=== PATIENT | female | born 1990 | race African-American/Black ===

== ENCOUNTER 2017-04-03 15:55 | Observation (INO) ==
--- NOTE | 2017-04-03 16:04 | OB/GYN Progress Note ---
Date of Encounter: 04/03/17 Time of Encounter: 16:02 - Assessment and Plan (1) Vaginal bleeding during , antepartum Current Visit: Yes Status: Acute Speculum exam shows no bleeding noted and vaginal vault, thick white vaginal discharge noted. External labia with no bleeding, rectal check reveals no hemorrhoids Vaginosis panel, UA with reflex to culture and sensitivity sent heart tones appropriate for gestational age Dr. Rogers updated if all labs negative will discharge to home Qualifiers: Trimester: second trimester Qualified Code(s): O46.92 - Antepartum hemorrhage, unspecified, second trimester (2) 24 weeks gestation of Current Visit: Yes Status: Acute Subjective - Subjective Interval history: 27-year-old 24+2 gestation presents to triage today with pink spotting when wiping after going to the bathroom 2. Patient reports good movement and denies leaking of fluid, contractions, no sexual intercourse and last 2 months, patient has never had this happen before. Low-lying placenta seen on last ultrasound patient came to triage for evaluation. Patient denies any discomfort or burning with urination, and no history of hemorrhoids. Antepartum ROS: new complaints, vaginal bleeding, no loss of fluid, no movement normal, no contractions Objective - Exam FHR: auscultation normal FHR comments: Appropriate for gestational age Auscultation: bilateral: normal Abdomen: Present: normal appearance, soft, gravid Uterus: Present: normal Cervical dilation: Closed/thick/high
[2017-04-03 16:12] LABS: Bilirubin,Urine Negative (Negative); Blood,Urine Negative (Negative); Clarity,Urine Cloudy (Clear); Color,Urine Yellow (Yellow); Glucose,Urine (UA) Normal (Normal); Ketones,Urine Negative (Negative); Leukocyte Esterase,Urine Small (Negative); Nitrite,Urine Negative (Negative); Protein,Urine Negative (Neg-Trace); Urobilinogen,Urine Normal (Normal)
[2017-04-03 16:16] LABS: Bacteria,Urine Moderate per hpf (None-Few); Hyaline Casts,Urine None Seen per lpf (None-Few); Squamous Epithelial Cell,Urine Many per lpf (None-Few); WBC,Urine 15-30 per hpf (0-3)
[2017-04-03 17:10] LABS: Candida DNA Not Detected (Not Detect); Gardnerella DNA Not Detected (Not Detect); Trichomonas DNA Not Detected (Not Detect)
[2017-04-03] MEDS ORDERED: Ringers Solution, Lactated 1,000 ML IVC ONE (17:30)
== END 2017-04-03 18:51 | disposition home or self-care (01) ==
LOC: 1NENULAB
PROVIDERS: ADMIT Obstetrics & Gynecology; ATTEND Obstetrics & Gynecology

== ENCOUNTER → 2017-04-19 11:05 | Observation (INO) ==
--- NOTE | 2017-05-01 11:23 | OB/GYN Progress Note ---
Date of Encounter: 04/19/17 Time of Encounter: 10:45 - Assessment and Plan (1) 26 weeks gestation of Status: Acute (2) Vaginal discharge during in second trimester Status: Acute Pt prevoiusly evaluated for this problem in office 2 days ago and has follow-up in office with the same provider tomorrow. She was evaluated by property staff accountant today and ruled out for PROM. Discharge home to follow-up tomorrow as scheduled. (3) Vaginal pain Status: Acute Subjective - Subjective Principal diagnosis: vaginal pain Interval history: Pt presenting to L&D triage with c/o vaginal discharge, labial swelling and discomfort. She denies s/sx PTL. She was seen on Thursday and has a follow-up appointment in the office tomorrow for the discharge and pain. She was evaluated by property staff accountant. Antepartum ROS: movement normal, no loss of fluid, no vaginal bleeding, no contractions Objective - Exam FHR: category 1 FHR comments: NST reactive per RN
== END | disposition home or self-care (01) ==
LOC: 1NENULAB
PROVIDERS: ADMIT Registered Nurse; ATTEND Registered Nurse

== ENCOUNTER → 2017-06-11 23:55 | Observation (INO) ==
[2017-06-11 22:44] LABS: Bilirubin,Urine Negative (Negative); Blood,Urine Negative (Negative); Clarity,Urine Cloudy (Clear); Color,Urine Dark Yellow (Yellow); Glucose,Urine (UA) Normal (Normal); Ketones,Urine 15 mg/dL (Negative); Leukocyte Esterase,Urine Small (Negative); Nitrite,Urine Negative (Negative); PH,Urine 6.5 pH Units (5.0-8.0); Protein,Urine 30 mg/dL (Neg-Trace); Specific Gravity,Urine > 1.030 (1.010-1.025); Urobilinogen,Urine Normal (Normal)
[2017-06-11 22:47] LABS: Squamous Epithelial Cell,Urine Many per lpf (None-Few)
[2017-06-11 22:56] LABS: Mucus,Urine Moderate (Few); RBC,Urine 0-3 per hpf (0-3)
[2017-06-11 22:57] LABS: Bacteria,Urine Few per hpf (None-Few); Calcium Oxalate Crystals,Urine Present
--- NOTE | 2017-06-11 23:26 | OB/GYN Progress Note ---
Date of Encounter: 06/11/17 Time of Encounter: 23:44 - Assessment and Plan (1) 34 weeks gestation of Current Visit: Yes Status: Acute (2) Vaginal bleeding during , antepartum Current Visit: No Status: Acute Speculum exam shows thick white vaginal discharge, no signs of bleeding. cervical exam 1/long/posterior vaginosis panel sent. will discharge to home, if vaginosis panel positive will call patient. Pt discharged with instructions on when to call provider or return to triage. Pt verbalizes understanding. Qualifiers: Trimester: third trimester Qualified Code(s): O46.93 - Antepartum hemorrhage, unspecified, third trimester Subjective - Subjective Interval history: 34+1 presents to triage with complaints of passing a blood clot with urination earlier in the week, and noticed pink on tissue again tonight after wiping. Has only happened those two times. Reports good movement, denies contractions or leaking of fluid, pain or burning with urination. Pt also with complaints of round ligament and sciatic pain. Antepartum ROS: new complaints, vaginal bleeding, movement normal, no loss of fluid, no contractions Objective - Vital Signs Vital Signs: Intake and Output 06/11/17 06/11/17 06/11/17 07:59 15:59 23:59 Other: Weight 75 kg Patient Weight 06/11/17 23:59 Weight 75 kg - Exam FHR: auscultation normal FHR comments: Baseline 135/ moderate/+accels Abdomen: Present: normal appearance, soft, gravid Cervical dilation: 1/long/posterior - Labs Labs: Abnormal lab results Urine Clarity Cloudy (Clear) A 06/11/17 22:40 Ur Specific [place] > 1.030 (1.010-1.025) H 06/11/17 22:40 Urine Protein 30 mg/dL (Neg-Trace) H 06/11/17 22:40 Urine Ketones 15 mg/dL (Negative) H 06/11/17 22:40 Ur Leukocyte Esterase Small (Negative) H 06/11/17 22:40 Urine Microscopic WBC 3-5 per hpf (0-3) H 06/11/17 22:40 Ur Squamous Epith Cells Many per lpf (None-Few) H 06/11/17 22:40 Urine Mucus Moderate (Few) H 06/11/17 22:40 Ur Culture Indicated? YES (NO) A 06/11/17 22:40
[2017-06-12 00:57] LABS: Trichomonas DNA Not Detected (Not Detect)
[2017-06-12 00:58] LABS: Candida DNA Not Detected (Not Detect); Gardnerella DNA Not Detected (Not Detect)
== END | disposition home or self-care (01) ==
LOC: 1NENULAB
PROVIDERS: ADMIT Advanced Practice Midwife; ATTEND Advanced Practice Midwife

== ENCOUNTER 2017-07-22 08:35 | Inpatient (IN) ==
[2017-07-22 04:39] LABS: Amphetamine Screen,Urine Negative ng/mL (Cutoff=1000); Barbiturate Screen,Urine Negative ng/mL (Cutoff=200); Benzodiazepines Screen,Urine Negative ng/mL (Cutoff=200); Cannabinoid Screen,Urine Positive ng/mL (Cutoff = 50); Cocaine Screen,Urine Negative ng/mL (Cutoff= 300); Opiate Screen,Urine Negative ng/mL (Cutoff=300); Phencyclidine Screen,Urine Negative ng/mL (Cutoff=25)
[2017-07-22 04:43] LABS: Basophils % 0.4 %; Eosinophils # 0.3 K/mcL (0.0-0.6); Eosinophils % 3.7 %; Hematocrit 30.5 % (35.3-44.9); Immature Granulocytes % 0.3 % (0-4); Lymphocytes # 2.6 K/mcL (0.6-4.6); Lymphocytes % 34.8 %; Mean Corpuscular HGB Conc 32.8 g/dL (31.6-35.5); Mean Corpuscular Hemoglobin 29.1 pg (28.0-33.3); Mean Corpuscular Volume 88.7 fL (83.0-100.0); Monocytes # 0.4 K/mcL (0.0-1.3); Monocytes % 5.2 %; Neutrophils # 4.1 K/mcL (1.6-8.9); Platelet Count 222 K/mcL (140-400); Red Blood Count 3.44 M/mcL (3.82-4.97); Red Cell Distribution Width 14.2 % (11.5-14.5); Segmented Neutrophils % 55.6 %
--- NOTE | 2017-07-22 05:38 | Anesthesia Evaluation PreOp ---
Date of Encounter: 07/22/17 Time of Encounter: 05:10 - Past History Planned Operation: KRYSTAL Cardiac History: Denies any Significant Hx Pulmonary History: Smoker, Pack/yr (10) TELECOM ENGINEER History: Other (h/o thoracic scoliosis) Other Medical History: Denies Any Significant HX Anesthesia History: No Prior Anesthetic Complications (denies personal h/o NA or GA complications; denies family h/o GA complications), Past Anesthesia (KRYSTAL x 2) : Yes Test: Positive Alcohol Use: none Drug use: marijuana Medications and Allergies Vit/Iron Fumarate/FA [ Tablet] 1 each PO DAILY 04/19/17 [ History] Iron Chews 07/22/17 [History] 3 Allergy/AdvReac Type Severity Reaction Status Date / Time No Known Allergies Allergy Unverified 01/04/17 01:25 - Meds/Allergy Pre-op Review Medications Reviewed: Yes Allergies Reviewed: Yes Beta Blockers on Current Med List: No Anesthesia Results - Labs 07/22/17 04:19 Anesthesia Exam 127/89, HR 97, RR 26 Height: 1.57m Weight: 74kg NPO (# of Hours): solids >8hrs Pain Scale: 10 Pain Scale Used: Numeric (1 - 10), OquendoDiomedes (Faces) - HEENT Pupil (Motor): Pupils equal Mallampati: II Teeth: Normal Oral Opening: Greater than 3 - TELECOM ENGINEER LOC: Oriented TELECOM ENGINEER Motor: Normal RUE, Normal LUE, Normal RLE, Normal LLE, Normal Face TELECOM ENGINEER Sensory: Normal: RUE, LUE, RLE, LLE, Face - Cardiac Rhythm: Regular Murmur: None - Pulmonary Breath Sounds: bilateral Clear Respiratory Effort: Symmetrical Anesthesia Assess/Plan ASA Score: 2 Modified Иван Scale for Level of Consciousness: Anixous, agitated or restless Anesthetic Plan: Regional Autologous Blood: No Monitoring Plan: Standard Monitors Recovery Plan: Other
--- NOTE | 2017-07-22 05:41 | Anesthesia Procedures ---
Date of Encounter: 07/22/17 Time of Encounter: 05:39 Procedures: Anesthesia - Epidural/Spinal Patient ID/Chart reviewed: Yes Patient examined: Yes OB Eval: Gestational age: 40 weeks 0 days OB Eval: : 5 OB Eval: Hx Para: 2 OB Eval: Dilated at (cm): 8 OB Eval: Contractions: Non-stressed pattern Consent Obtained: Yes Supplemental Oxygen: None/Room Air Site Prep: Aseptic Technique, Sterile prep and drape, Povidone-Iodine 1% Patient position: upright Local Anesthetic: Lidocaine 1% Amount of Local Anesthetic used: 3 Touhy Needle Gauge: 18 Touhy Needle Depth (cm): 5 Catheter Depth at Skin (cm): 10 Test Dose (1.5% Lido + Epi): Volume given (mls): 5 Test Dose Result: Negative Loading Dose: 0.25% Marcaine (mls): 5 Loading Dose: Fentanyl (mcg): 100 Loading Dose Administered: Thru Catheter Infusion Med: 0.125% Bupivacaine w/ 2 mcg/ml Fentanyl Infusion Rate (mls/hr): [address]: Tegaderm, Tape Interspace Used: L3-L4 Loss of Resistance (CHRIST): Yes Blood: No CSF: No Paresthesia: No Vitals + FHT's: please see [facility] EPPS's electronic documentation
--- NOTE | 2017-07-22 06:05 | OB/GYN History & Physical ---
Date of Encounter: 07/22/17 Time of Encounter: 06:03 Assessment and Plan (1) 40 weeks gestation of Current visit: Yes Status: Acute Admit to labor and delivery. Monitor FHTs and contractions. Epidural if desired. GBS positive, prophylaxis administration. Anticipate . History of Present Illness Chief complaint: Spontaneous rupture of membranes HPI: Ms. Graves is a 27 year old female, , at 40+0, presents to labor and delivery with spontaneous rupture of membranes. Pt reports good movement of [place], denies blood in discharge, occasional contractions. Labs: GBS positive. VZV immune, Rubella equivocal. Other serologies negative. Blood type O positive. Past Med Surg Social Fam HX - Past Medical History Medical history: asthma, other Psychiatric history: anxiety - Past Surgical History Surgical History: no surgical history - Social History Smoking Status: Current every day smoker Packs per day: 1/2 Smokeless Tobacco Status: No Alcohol use: none Drug use: marijuana - Family History Mother Adopted: No Family Member Ethnicity: Non- Living Status: Still Living Hx Family Cardiac Disorders: No Hx Family Respiratory Disorders: No Hx Family Cancer: No Hx Family GI Disorders: No Hx Family Genitourinary Disorders: No Hx Family Endocrine Disorder: Yes (type 2 diabetes) Hx Family Musculoskeletal Disorders: No Hx Family Neuromuscular Disorders: No Hx Family Neurologic Disorders: No Hx Family HEENT Disorders: No Hx Family Autoimmune Disorders: No Hx Family Reproductive Disorders: No Hx Family Psychosocial Disorders: No Hx Family Medical Disorders: No Obstetrical History - Pregnancies : 5 Medications and Allergies Vit/Iron Fumarate/FA [ Tablet] 1 each PO DAILY 04/19/17 [ History] Iron Chews 07/22/17 [History] 3 Allergy/AdvReac Type Severity Reaction Status Date / Time No Known Allergies Allergy Unverified 01/04/17 01:25 Review of System OB - Constitutional Constitutional ROS IM: no headache(s), no malaise - Cardiovascular Cardiovascular: no chest pain - Respiratory Respiratory: no dyspnea - Gastrointestinal Gastrointestinal: no abdominal pain Exam - Constitutional Constitutional: well developed, well nourished, no acute distress, average body habitus - HEENT HEENT: EOMI, Mucus Membranes Moist - Neck Neck exam: full ROM - Lungs Respiratory exam: CTAB - Cardiovascular Cardiovascular exam: +S1, +S2 - Abdomen Abdomen: Present: gravid - Extremities Extremities exam: warm, radial pulses palpable and symmetrical - Cervix Dilation: 8 Results Result Diagrams: 07/22/17 04:19 Abnormal lab results RBC 3.44 M/mcL (3.82-4.97) L 07/22/17 04:19 Hgb 10.0 g/dL (11.5-15.4) L 07/22/17 04:19 Hct 30.5 % (35.3-44.9) L 07/22/17 04:19 U Marijuana (THC) Screen Positive ng/mL (Cutoff = 50) H 07/22/17 04:19 All other labs normal. - VTE Reasons for not Prescribing Prophylaxis: Treatment not Indicated - Low risk for VTE
--- NOTE | 2017-07-22 07:58 | OB/GYN Procedure Note ---
Delivery - Delivery Date: 07/22/17 Provider: Chuyita Vazquez Intrapartum events: none Delivery induction: none Delivery monitor: external FHT, external uterine Anesthesia: epidural Estimated Blood Loss: 50 - Infant (s) Infant A Delivery Date: 07/22/17 Infant Delivery Time: 07:26 Presentation: vertex Position: OP Route of delivery: Gender: Male Viability: Viable Pounds: 7 Ounces: 5 Weight Gram: 3310 kg at 1 minute: 8 at 5 mins: 9 Shoulder Dystocia: not encountered Specimens collected: cord blood Placenta: spontaneous Cord: 3 umbilical vessels - Repair Episiotomy: none Laceration Description: None - Complications Delivery complications: none Delivery comments: Pt presented in active labor and progressed normally to over intact perineum for viable male weighing 7lbs. 5oz with apgars 8at one minute and 9 at five minutes. After a two minute delay the cord was clamped and cut and the placenta delivered spontaneous and intact. Mother and baby stable in DR following procedure. - Disposition Mom disposition: stable in LDR disposition: stable in LDR
[~2017-07-22 08:35] MED LIST: *HR* FentaNYL (PF) 100 MCG/2 ML VIAL EP ONE; *HR* FentaNYL (PF) 100 MCG/2 ML VIAL ONE; *HR* Oxytocin 10 UNIT/ML VIAL IM ONE; Bupivacaine-MPF 0.25% 10 ML VIAL EP ONE; Bupivacaine-MPF 0.25% 10 ML VIAL ONE; Epidural Premix (fent/bupiv) 110 ML EP ONE; Epidural Premix (fent/bupiv) 110 ML EP SCH; Famotidine 20 MG/2 ML VIAL IVP PRN; Metoclopramide 10 MG/2 ML VIAL IVP PRN; Naloxone 0.4 MG/ML INJ IVP PRN; Ondansetron 4 MG/2 ML VIAL IVP PRN; Oxytocin 20 units/ LR 1000 mL 20 UNIT/1,000 ML BAG IVC ONE; Penicillin G Potassium 2,500,000 UNIT in D5% in Water 100 ML IVPB SCH; Penicillin G Potassium 5,000,000 UNIT in D5% in Water (Mini-Bag+) 100 ML IVPB ONE; Ringers Solution, Lactated 1,000 ML IVC SCH
[2017-07-22] MEDS ORDERED: Acetaminophen 325 MG TABLET PO PRN (10:06)
[2017-07-22] MEDS ORDERED: *HR* Oxytocin 10 UNIT/ML VIAL IM ONE (10:06)
[2017-07-22] MEDS ORDERED: Prenatal Vit/FA 1 EACH TABLET PO SCH (10:06)
[2017-07-22] MEDS ORDERED: Oxytocin 20 units/ LR 1000 mL 20 UNIT/1,000 ML BAG IVC SCH (10:06)
[2017-07-22] MEDS ORDERED: Measles/Mumps/Rubella Vacc 0.5 ML VIAL SQ PRN (10:06)
[2017-07-22] MEDS: Ibuprofen 600 MG TABLET PO PRN (11:02)
[2017-07-23] MEDS: Ibuprofen 600 MG TABLET PO PRN (07:56)
--- NOTE | 2017-07-23 09:03 | Discharge Summary ---
Date of Encounter: 07/23/17 Time of Encounter: 09:00 - Discharge Diagnosis (1) Vaginal delivery Priority: Primary Status: Acute Comments: continue routine care discharge home today follow up with CNM in 4-6 weeks (2) Breast feeding status of mother Priority: Secondary Status: Acute Comments: support prn - Discharge Medications Prescriptions: Ibuprofen [Motrin] 600 mg PO Q6HR PRN #60 tab PRN Reason: Cramping Home Medications: Vit/Iron Fumarate/FA [ Tablet] 1 each PO DAILY 04/19/17 [ History] Ibuprofen [Motrin] 600 mg PO Q6HR PRN #60 tab 07/23/17 [Rx] Vit/FA 1 each PO DAILY tab 07/23/17 [Rx] Allergies/Adverse Reactions: 3 Allergy/AdvReac Type Severity Reaction Status Date / Time No Known Allergies Allergy Unverified 01/04/17 01:25 Data Procedures and tests throughout hospitalization: Laboratory Tests 07/22/17 07/22/17 04:19 04:19 WBC 7.4 RBC 3.44 L Hgb 10.0 L Hct 30.5 L MCV 88.7 MCH 29.1 MCHC 32.8 RDW 14.2 Plt Count 222 MPV 11.0 Immature Gran % 0.3 Seg Neutrophils % 55.6 Lymphocytes % 34.8 Monocytes % 5.2 Eosinophils % 3.7 Basophils % 0.4 Neutrophils # 4.1 Lymphocytes # 2.6 Monocytes # 0.4 Eosinophils # 0.3 Basophils # 0.0 Urine Opiates Screen Negative Ur Barbiturates Screen Negative Ur Phencyclidine Scrn Negative Ur Amphetamines Screen Negative U Benzodiazepines Scrn Negative Urine Cocaine Screen Negative U Marijuana (THC) Screen Positive H Date of admission: 07/22/17 08:35 Primary care physician: PCP NONE Consults: 07/22/17 10:06 Consult to Lithographic Camera Operator [CONS] Routine Comment: Vaginal delivery, consult needed 07/22/17 10:07 Consult to Collections Clerk (W&C) [CONS] Routine Reason For Exam: Reason for SW Consult: assess if she has all she needs for infant, domestic interaction with children. No FOB involved. Discharging clinician: Cleo Sigala Anticipated date of discharge: 07/23/17 - Patient Status Disposition: Home, Self-Care Condition: Good Functional capacity at discharge: independent ambulation - Discharge Instructions Follow Up With: NONE,PCP [Primary Care Provider] - Chuyita Vazquez CNM [Non-Partnered Physician] - - Diet and Activity Activity: increase activity as tolerated Diet: regular diet Hospital Course Reason for admission: active labor Delivery: Episiotomy: none complications: none Discharge diagnosis: IUP at term delivered [place] baby: male (breast feeding) Time Attestation: Total time spent providing and/or coordinating discharge services: Time Spent: Less than 30 minutes Exam - Constitutional Vitals: Temp Pulse Resp BP Pulse Ox 98.3 F 65 16 105/59 99 07/23/17 03:30 07/23/17 03:30 07/23/17 08:08 07/23/17 03:30 07/23/17 03:30 General appearance IM: A&O X 3, pleasant, answers questions appropriately - Respiratory Respiratory exam: Present: CTAB - Cardiovascular Cardiovascular exam IM: Present: RRR, +S1, +S2 - GI/Abdominal GI/Abdominal exam IM: normal bowel sounds - Uterine Tone: Firm Uterus Position: 1 Finger Below Umbilicus, Midline - Extremities Exam Extremities exam IM: Present: full ROM, normal capillary refill, normal inspection - Neurological Exam Neurological exam: alert, oriented X3, reflexes normal
[2017-07-23 10:57] VITALS: BP 130/81
== END 2017-07-23 13:15 | disposition home or self-care (01) | DRG 560 ==
LOC: 1NENULAB → 1NENUOBS 10:05
PROVIDERS: ADMIT Registered Nurse; ATTEND Registered Nurse

== ENCOUNTER 2017-07-28 14:29 | Observation (INO) ==
[2017-07-28] MEDS ORDERED: Acetaminophen/Butalbital/CaffeineTABLET PO STA (14:48)
[2017-07-28] MEDS ORDERED: Caffeine/Sodium Benzoate 500 MG in 0.9 % Sodium Chloride 1,000 ML IV ONE (14:54)
[2017-07-28] MEDS ORDERED: Hydrocortisone Sodium Succ 100 MG/2 ML VIAL IVP ONE (14:55)
--- NOTE | 2017-07-28 15:22 | Emergency Department Note ---
Disposition Clinical Impression: Pre-eclampsia Qualifiers: Trimester: unspecified trimester Qualified Code(s): O14.90 - Unspecified pre- eclampsia, unspecified trimester Disposition: Admitted As Inpatient Condition: Good Forms: ED Satisfaction Letter Time of Disposition: 17:51 Headache HPI - General Chief Complaint: ED Headache Stated Complaint: Migraine Time Seen by Provider: 07/28/17 14:45 Limitations: no limitations Nursing Notes Reviewed: Yes Vital Signs Reviewed: Yes - History of Present Illness HPI Narrative: 27 year old female s/p epidural 6 days ago presents to the ED with complaints of headache that changes in severity with standing and sitting. She was seen here earlier in the day and treated with a migraine cocktail and they had consulted anesthesia at that time and they did not recommend a blood patch at that time. Emily states that she also spoke with anesthesia and they did not recommend a blood patch at that time. She states that lights and sound do aggrevate her headache and that she has had nausea and vomitting associated with it but not fever or neuro defeits. She states she was given fiorcet for pain relie although she has only taken and is advised to take 3, but doesnt because she has had no appeteit eand not cannot take it by monuth without food. Pain Scale: 4 - Related Data Home Medications Medication Instructions Recorded Confirmed Vit/Iron Fumarate/FA 1 each PO DAILY 04/19/17 04/19/17 [ Tablet] Previous Rx's Medication Instructions Recorded Ibuprofen [Motrin] 600 mg PO Q6HR PRN #60 tab 07/23/17 Vit/FA 1 each PO DAILY tab 07/23/17 Codeine/Butalbital/ASA/Caffein 1 each PO TID #15 capsule 07/28/17 [Fiorinal with Codeine #3 Cap] Allergies Allergy/AdvReac Type Severity Reaction Status Date / Time No Known Allergies Allergy Unverified 01/04/17 01:25 Constitutional: Denies: fever, chills, weakness, weight change Eyes: Denies: eye pain, eye discharge, vision change ENT ED: Denies: ear pain, throat pain, dental pain, hearing loss, epistaxis, congestion, dysphagia Cardiovascular: Denies: chest pain, palpitations, dyspnea on exertion, edema, syncope Respiratory: Denies: cough, dyspnea, wheezes, hemoptysis, stridor Gastrointestinal: Denies: abdominal pain, nausea, vomiting, diarrhea, constipation, hematemesis, melena, hematochezia Genitourinary: Denies: dysuria, frequency, hematuria, discharge Musculoskeletal: Denies: back pain, neck pain, arthralgia, myalgia Integumentary: Denies: rash, abrasion, lesions Neurological: Reports: headache. Denies: weakness, numbness, paresthesias, confusion, abnormal gait, vertigo Psychiatric: Denies: anxiety, depression, suicidal thoughts, homicidal thoughts , auditory hallucinations, visual hallucinations Endocrine: Denies: fatigue Hematological/Lymphatic: Denies: easy bleeding, easy bruising Allergic/Immunologic: Denies: facial swelling, urticaria Headache PMH - Past Medical History Medical history: Reports: asthma, other Female Surgical History: Reports: no surgical history Psychiatric history: Reports: anxiety - Social History Smoking Status: Current every day smoker Alcohol use: Reports: none Drug use: Reports: marijuana Physical Exam - General Limitations: no limitations General appearance: in no apparent distress - Head Head exam: atraumatic, normocephalic, normal inspection - Eye Eye exam: Present: normal appearance, PERRL, EOMI - Expanded Eye Exam Pupils: Left: reactive - ENT ENT exam: normal exam, normal oropharynx, mucous membranes moist - Expanded ENT Exam External ear exam: Present: normal external inspection Mouth exam: Present: normal external inspection Teeth exam: Present: normal inspection Throat exam: Present: normal inspection - Neck Neck exam: Present: normal inspection, full ROM, trachea midline - Chest Chest inspection: Present: normal inspection, symmetric chest wall rise - Respiratory Respiratory exam: Present: normal lung sounds bilaterally - Cardiovascular Cardiovascular exam: Present: regular rate, normal rhythm, normal heart sounds - Abdominal Exam Abdominal exam: Present: soft, Non-Tender. Absent: tenderness, distention, guarding, rebound, rigidity - Extremities Exam Extremities exam: Present: normal inspection, full ROM. Absent: tenderness, pedal edema - Expanded Upper Extremity Exam Shoulder exam: Present: normal inspection, full ROM Arm exam: Present: normal inspection, full ROM Elbow exam: Present: normal inspection, full ROM Forearm/Wrist exam: Present: normal inspection, full ROM Hand exam: Present: normal inspection, full ROM Vascular exam: Normal: capillary refill, radial pulse - Expanded Lower Extremity Exam Hip/Pelvis exam: Present: normal inspection, full ROM Upper leg exam: Present: normal inspection, full ROM Knee exam: Present: normal inspection, full ROM Lower leg exam: Present: normal inspection, full ROM Ankle exam: Present: normal inspection, full ROM Foot/toe exam: Present: normal inspection, full ROM Neurovascular/Tendon exam: Absent: motor deficit, sensory deficit, tendon deficit - Back Exam Back exam: Present: normal inspection, full ROM. Absent: tenderness - Neurological Exam Neurological exam: Present: alert, oriented X3 - Expanded Neurological Exam Patient oriented to: Present: person, place, time Speech: Present: fluid speech Cranial nerves: EOM function (II, III, IV, ): Normal, facial sensation (V): Normal, facial palsy (VII): Normal, gag reflex (IX): Normal, spinal accessory function (XI): Normal, tongue deviation (XII): Normal Cerebellar function: finger to nose: Normal, heel to saeed: Normal Cerebellar function: normal gait, Romberg normal Motor strength - LUE: 4/5 Motor strength - RUE: 4/5 Motor strength - LLE: 4/5 Motor strength - RLE: 4/5 Upper motor neuron exam: jolanta neglect: Absent bilaterally, pronator drift: Absent bilaterally, Babinski sign: Absent bilaterally, sensory extinction: Absent bilaterally Sensory exam upper extremity: light touch: Normal, pin prick: Normal Sensory exam lower extremity: light touch: Normal, pin prick: Normal Coma Scale Eye Opening: Spontaneous Coma Scale Motor Response: Obeys Commands Coma Scale Verbal Response: Oriented Coma Scale Total: 15 - Psychiatric Psychiatric exam: Present: normal affect, normal mood - Skin Skin exam: Present: warm, dry, intact, normal color Course Course Narrative: we will do a MR/CT at this time to rule out abscess vs tear. Blood pressure is normal, low threshold for pre-eclampsia. - Reevaluation(s) Reevaluation #1: MRI and CT are negative. PAtinet blood pressure is elevated now to 188/102 and now my concern is for pre-eclampsia as she is now vomitting at bedside. WE will consult OBGYN for further dispostion. Time: 17:26 - Consultations Consultation #1: discussed case with jori gabriel (shoe stitcher odd) and patient is part of this group. She agrees that this may be pre-eclampsia and would like labetolol started to the treatment and magenesium if the blood pressure does not improve. we will admit to the shoe stitcher odd service. Emily cannot be admitted with her child according to the shoe stitcher odd group. Time: 17:48 Vital Signs Temperature 97.9 F 07/28/17 14:34 Pulse Rate 65 07/28/17 14:34 Respiratory Rate 18 07/28/17 14:34 Blood Pressure 138/89 07/28/17 14:34 O2 Sat by Pulse Oximetry 100 07/28/17 14:34 Temperature 97.9 F 07/28/17 14:34 Pulse Rate 58 07/28/17 17:31 Respiratory Rate 18 07/28/17 17:31 Blood Pressure 188/102 07/28/17 17:31 O2 Sat by Pulse Oximetry 97 07/28/17 17:31 Oxygen Delivery Oxygen Delivery Room Air
[2017-07-28] MEDS ORDERED: *HR* HYDROmorphone (PF) 1 MG/ML SYRINGE IVP ONE (15:27)
[2017-07-28] MEDS ORDERED: *HR* LORazepam 2 MG/ML VIAL IVP ONE (15:27)
[2017-07-28] MEDS: *HR* Labetalol 20 MG/4 ML SYRINGE IVP ONE ×2 (18:10→18:29)
[2017-07-28] MEDS ORDERED: *HR* Labetalol 100 MG/20 ML MDV IVP ONE ×2 (18:15→19:00)
[2017-07-28] MEDS ORDERED: *HR* Labetalol 20 MG/4 ML SYRINGE IVP ONE (18:28)
[2017-07-28] MEDS ORDERED: Ondansetron 4 MG/2 ML VIAL IVP ONE (19:00)
[2017-07-28] MEDS ORDERED: *HR* Promethazine 25 MG/ML VIAL IVP PRN (19:43)
[2017-07-28] MEDS ORDERED: Ondansetron 4 MG/2 ML VIAL IVP PRN (19:43)
[2017-07-28] MEDS ORDERED: Acetaminophen 325 MG TABLET PO PRN (19:48)
--- NOTE | 2017-07-28 19:57 | OB/GYN History & Physical ---
Date of Encounter: 07/28/17 Time of Encounter: 19:51 Assessment and Plan (1) hypertension Current visit: Yes Status: Acute Patient admitted Magnesium sulfate administered Discussed patient with Dr. Hayes. Dr. Hayes recommends a MRV (2) Nausea and vomiting Current visit: Yes Status: Acute treat with IV antiemetic Qualifiers: Vomiting type: unspecified Vomiting Intractability: unspecified Qualified Code(s): R11.2 - Nausea with vomiting, unspecified (3) Breast feeding status of mother Current visit: Yes Status: Acute patient provided breast pump for use (4) Headache Current visit: No Status: Acute pain medication prn Qualifiers: Headache type: unspecified Headache chronicity pattern: acute headache Intractability: not intractable Qualified Code(s): R51 - Headache History of Present Illness Chief complaint: Severe headache and elevated BP 6 days pp HPI: Ms. Graves is a 27 year old female 6 days following a . Patient presents to ER twice in past 24 hours for severe headache with nausea and vomiting. Patient reports headache started yesterday without relief from Tylenol or Motrin. Patient states pain is a throbbing pain that gets worse with sitting or laying down. Patient was assessed by anesthesia for spinal headache. Spinal headache was ruled out. On patient's second admission to ER she had a CT and MRI both were unremarkable. Patient had normal PIH labs however, BP began to elevate in the severe preeclampsia range of 160's/110. Labetalol IV was given and magnesium sulfate 4 gram bolus was started for seizure precautions. Patient admitted to rule out preeclampsia. Past Med Surg Social Fam HX - Past Medical History Source: patient Medical history: asthma, other Psychiatric history: anxiety - Past Surgical History Surgical History: no surgical history - Social History Smoking Status: Current every day smoker Smokeless Tobacco Status: No Alcohol use: none Drug use: marijuana - Family History Mother Adopted: No Family Member Ethnicity: Non- Living Status: Still Living Hx Family Cardiac Disorders: No Hx Family Respiratory Disorders: No Hx Family Cancer: No Hx Family GI Disorders: No Hx Family Endocrine Disorder: Yes (type 2 diabetes) Hx Family Neuromuscular Disorders: No Hx Family Neurologic Disorders: No Hx Family HEENT Disorders: No Hx Family Autoimmune Disorders: No Obstetrical History - Pregnancies : 5 Para: 3 Term: 3 : 0 Ab's: 2 Livin Medications and Allergies Vit/FA 1 each PO DAILY tab 07/23/17 [Rx] Acetaminophen [Tylenol] 500 mg PO Q6HR PRN 07/28/17 [History] Codeine/Butalbital/ASA/Caffein [Fiorinal with Codeine #3 Cap] 1 each PO TID #15 capsule 07/28/17 [Rx] Ferrous Sulfate 325 mg PO DAILY 07/28/17 [History] 3 Allergy/AdvReac Type Severity Reaction Status Date / Time No Known Allergies Allergy Unverified 01/04/17 01:25 Review of System OB - Constitutional Constitutional ROS IM: headache(s) (throbbing), no chills, no fever(s) - Cardiovascular Cardiovascular: no chest pain, no edema, no palpitations, no rapid heart rate, no syncope - Respiratory Respiratory: no cough, no dyspnea - Gastrointestinal Gastrointestinal: nausea, vomiting - Neurological Nerological: headache(s), no dizziness, no loss of vision, no syncope Exam - Vital Signs Vital signs: Initial Vital Signs Temp Pulse Resp BP Pulse Ox 97.9 F 65 18 138/89 100 07/28/17 14:34 07/28/17 14:34 07/28/17 14:34 07/28/17 14:34 07/28/17 14:34 - Constitutional Constitutional: well developed ( ), well nourished, average body habitus - HEENT HEENT: Normocephaly, Mucus Membranes Moist - Neck Neck exam: full ROM, supple - Lungs Respiratory exam: CTAB - Cardiovascular Cardiovascular exam: RRR, +S1, +S2 - Abdomen Abdomen: Present: bowel sounds normal, gravid, non tender - Extremities Extremities exam: full ROM, normal capillary refill, normal inspection Deep Tendon Reflex Grade: 2+ Normal (no clonus) Results All other labs normal. - VTE Reasons for not Prescribing Prophylaxis: Treatment not Indicated - Low risk for VTE
[2017-07-28] MEDS ORDERED: Ringers Solution, Lactated 1,000 ML IVC SCH (20:00)
[2017-07-28] MEDS: Magnesium Sulfate 20 gm/500mL 20 GM/500 ML IV.SOLN IVC SCH (20:38)
[2017-07-28 20:48] LABS: Protein/Creatinine Ratio,Urine 0.93 mg/mg (0-0.20)
[2017-07-28] MEDS ORDERED: Calcium Gluconate 1,000 MG/10 ML VIAL IVPB ONE (20:53)
[2017-07-29] MEDS: *HR* OxyCODONE/APAP 5/325 TABLET PO PRN ×2 (00:16→08:53)
[2017-07-29] MEDS: Magnesium Sulfate 20 gm/500mL 20 GM/500 ML IV.SOLN IVC SCH (08:34)
[2017-07-29 08:40] LABS: Alanine Aminotransferase 18 Units/L (0-55); Aspartate Amino Transferase 18 Units/L (5-34); BUN/Creatinine Ratio 8 (6-26); Blood Urea Nitrogen 6 mg/dL (7-20); Lactate Dehydrogenase 273 Units/L (159-327); Uric Acid 6.8 mg/dL (2.6-6.0); eGFR For African Americans > 60 (> 60); eGFR For Non-African Americans > 60 (> 60)
[2017-07-29 09:25] LABS: Basophils % 0.3 %; Eosinophils # 0.1 K/mcL (0.0-0.6); Eosinophils % 0.6 %; Hematocrit 35.3 % (35.3-44.9); Hemoglobin 11.4 g/dL (11.5-15.4); Immature Granulocytes % 0.6 % (0-4); Lymphocytes # 3.2 K/mcL (0.6-4.6); Lymphocytes % 25.2 %; Mean Corpuscular HGB Conc 32.3 g/dL (31.6-35.5); Mean Corpuscular Hemoglobin 28.6 pg (28.0-33.3); Mean Corpuscular Volume 88.7 fL (83.0-100.0); Mean Platelet Volume 10.6 fL (9.4-12.4); Monocytes # 0.7 K/mcL (0.0-1.3); Monocytes % 5.8 %; Platelet Count 321 K/mcL (140-400); Red Blood Count 3.98 M/mcL (3.82-4.97); Red Cell Distribution Width 13.2 % (11.5-14.5); Segmented Neutrophils % 67.5 %
[2017-07-29 09:31] LABS: Neutrophils # 8.4 K/mcL (1.6-8.9)
--- NOTE | 2017-07-29 18:11 | Discharge Summary ---
Date of Encounter: 07/29/17 Time of Encounter: 18:14 - Discharge Medications Prescriptions: Labetalol [Trandate] 200 mg PO Q8H #90 tablet Home Medications: Vit/FA 1 each PO DAILY tab 07/23/17 [Rx] Acetaminophen [Tylenol] 500 mg PO Q6HR PRN 07/28/17 [History] Codeine/Butalbital/ASA/Caffein [Fiorinal with Codeine #3 Cap] 1 each PO TID #15 capsule 07/28/17 [Rx] Ferrous Sulfate 325 mg PO DAILY 07/28/17 [History] Labetalol [Trandate] 200 mg PO Q8H #90 tablet 07/29/17 [Rx] Allergies/Adverse Reactions: 3 Allergy/AdvReac Type Severity Reaction Status Date / Time No Known Allergies Allergy Unverified 01/04/17 01:25 Data Procedures and tests throughout hospitalization: Laboratory Tests 07/28/17 07/29/17 07/29/17 20:18 08:00 08:00 WBC 12.5 H D RBC 3.98 Hgb 11.4 L Hct 35.3 MCV 88.7 MCH 28.6 MCHC 32.3 RDW 13.2 Plt Count 321 MPV 10.6 Immature Gran % 0.6 Seg Neutrophils % 67.5 Lymphocytes % 25.2 Monocytes % 5.8 Eosinophils % 0.6 Basophils % 0.3 Neutrophils # 8.4 Lymphocytes # 3.2 Monocytes # 0.7 Eosinophils # 0.1 Basophils # 0.0 BUN 6 L Creatinine 0.79 Est GFR ( Amer) > 60 Est GFR (Non-Af Amer) > 60 BUN/Creatinine Ratio 8 Uric Acid 6.8 H AST 18 ALT 18 Lactate Dehydrogenase 273 Urine Creatinine 109 Protein/Creatinin Ratio 0.93 H Urine Total Protein 101 H Labs on day of discharge: Labs from last 24 hours 07/29/17 07/29/17 07/28/17 08:00 08:00 20:18 WBC 12.5 H D RBC 3.98 Hgb 11.4 L Hct 35.3 MCV 88.7 MCH 28.6 MCHC 32.3 RDW 13.2 Plt Count 321 MPV 10.6 Immature Gran % 0.6 Seg Neutrophils % 67.5 Lymphocytes % 25.2 Monocytes % 5.8 Eosinophils % 0.6 Basophils % 0.3 Neutrophils # 8.4 Lymphocytes # 3.2 Monocytes # 0.7 Eosinophils # 0.1 Basophils # 0.0 BUN 6 L Creatinine 0.79 Est GFR ( Amer) > 60 Est GFR (Non-Af Amer) > 60 BUN/Creatinine Ratio 8 Uric Acid 6.8 H AST 18 ALT 18 Lactate Dehydrogenase 273 Urine Creatinine 109 Protein/Creatinin Ratio 0.93 H Urine Total Protein 101 H - Impressions ITS Impressions Head MRA 07/28/17 19:41 IMPRESSION: No evidence of acute dural venous sinus thrombosis. D/ / Narendra Pollack MD / Narendra Pollack MD Interpreting Provider: Narendra Pollack MD Date of admission: 07/28/17 18:19 Primary care physician: Remberto Avalos MD Discharging clinician: Helene Madden - Patient Status Disposition: Home, Self-Care Condition: Good Functional capacity at discharge: independent ambulation Overall status at discharge: patient is back to baseline - Discharge Instructions Instructions: Preeclampsia and Eclampsia (DC), Chronic Hypertension (DC) Follow Up With: Remberto Avalos MD [Primary Care Provider] - Cleo Sigala CNM [Non-Partnered Physician] - - Diet and Activity Activity: resume usual activities as tolerated Diet: regular diet Hospital Course NEWS AGENT Reason for admission: other (headache, pre-eclampsia) Discharge diagnosis: other (headache, pre-eclampsia) Hospital course: Admitted for blood pressure management, magenesium sulfate administration of preeclampsia. Head MRA, CT and Lumbar spine CT negative for acute pathology Will discharge home on TID labetalol with follow up appointment in the office on Thursday. Time Attestation: Total time spent providing and/or coordinating discharge services: Time Spent: Less than 30 minutes Exam - Constitutional Vitals: Temp Pulse Resp BP Pulse Ox 98.0 F 80 18 110/65 98 07/29/17 16:01 07/29/17 17:00 07/29/17 17:00 07/29/17 17:00 07/29/17 16:01 General appearance IM: A&O X 3, pleasant, no acute distress - Respiratory Respiratory exam: Present: CTAB - Cardiovascular Cardiovascular exam IM: Present: RRR - GI/Abdominal GI/Abdominal exam IM: normal bowel sounds, soft - Uterine Tone: Firm Uterus Position: 2 Fingers Below Umbilicus - Extremities Exam Extremities exam IM: Present: normal capillary refill, normal inspection - Neurological Exam Neurological exam: normal gait, oriented X3, reflexes normal - Psychiatric Additional comments: Pt anxious about admission, but reports good mood. - VTE Reasons for not Prescribing Prophylaxis: Treatment not Indicated - Low risk for VTE
[2017-07-29 20:06] VITALS: BP 121/81
== END 2017-07-29 21:30 | disposition home or self-care (01) ==
LOC: EMEROO 14:29 → 1NENUOBS 14:29
PROVIDERS: ADMIT Advanced Practice Midwife; ATTEND Advanced Practice Midwife

== ENCOUNTER 2021-03-20 13:42 | Inpatient (IN) ==
[2021-03-20] MEDS ORDERED: Metoclopramide 10 MG/2 ML VIAL IVP PRN (14:03)
[2021-03-20] MEDS ORDERED: Naloxone 0.4 MG/ML INJ IVP PRN (14:03)
[2021-03-20] MEDS ORDERED: *HR* Nalbuphine 10 MG/ML AMPUL IV PRN (14:03)
[2021-03-20] MEDS ORDERED: Azithromycin 500 MG in 0.9 % Sodium Chloride 250 ML IVPB PRN (14:03)
[2021-03-20] MEDS ORDERED: Famotidine 20 MG/2 ML VIAL IVP PRN (14:03)
[2021-03-20] MEDS ORDERED: Ondansetron 4 MG/2 ML VIAL IVP PRN (14:03)
[2021-03-20] MEDS ORDERED: Ringers Solution, Lactated 1,000 ML IVC SCH (14:15)
[2021-03-20] MEDS ORDERED: Oxytocin 20 units/ LR 1000 mL 20 UNIT/1,000 ML BAG IVC SCH ×2 (14:15→20:15)
[2021-03-20] MEDS ORDERED: Lidocaine -MPF 2% 5 ML VIAL ONE (15:10)
[2021-03-20] MEDS ORDERED: EPHEDrine 50 MG/ML VIAL IVP PRN (15:35)
[2021-03-20 15:44] LABS: Basophils % 0.3 %; Eosinophils # 0.3 K/mcL (0.0-0.6); Eosinophils % 3.8 %; Hematocrit 31.1 % (35.3-44.9); Hemoglobin 10.3 g/dL (11.5-15.4); Immature Granulocytes % 0.4 % (0-4); Lymphocytes # 2.3 K/mcL (0.6-4.6); Lymphocytes % 25.7 %; Mean Corpuscular HGB Conc 33.1 g/dL (31.6-35.5); Mean Corpuscular Hemoglobin 30.4 pg (28.0-33.3); Mean Corpuscular Volume 91.7 fL (83.0-100.0); Mean Platelet Volume 10.7 fL (9.4-12.4); Monocytes # 0.4 K/mcL (0.0-1.3); Monocytes % 4.1 %; Neutrophils # 5.9 K/mcL (1.6-8.9); Red Blood Count 3.39 M/mcL (3.82-4.97); Red Cell Distribution Width 13.8 % (11.5-14.5); Segmented Neutrophils % 65.7 %
[2021-03-20] MEDS ORDERED: Epidural Premix (fent/bupiv) 110 ML EP SCH (15:45)
[2021-03-20 16:18] LABS: Platelet Count 231 K/mcL (140-400)
[2021-03-20 16:54] LABS: Amphetamine Screen,Urine Negative ng/mL (Cutoff=1000); Barbiturate Screen,Urine Negative ng/mL (Cutoff=200); Benzodiazepines Screen,Urine Negative ng/mL (Cutoff=200); Cannabinoid Screen,Urine Positive ng/mL (Cutoff = 50); Cocaine Screen,Urine Negative ng/mL (Cutoff= 300); Opiate Screen,Urine Negative ng/mL (Cutoff=300); Phencyclidine Screen,Urine Negative ng/mL (Cutoff=25)
[2021-03-20 17:09] LABS: Adenovirus Not Detected (Not Detect); Bordetella Pertussis Not Detected (Not Detect); Chlamydophila pneumoniae Not Detected (Not Detect); Coronavirus 229E Not Detected (Not Detect); Coronavirus HKU1 Not Detected (Not Detect); Coronavirus NL63 Not Detected (Not Detect); Coronavirus OC43 Not Detected (Not Detect); Human Metapneumovirus Not Detected (Not Detect); Human Rhinovirus/Enterovirus DETECTED (Not Detect); Influenza A Subtype 2009 H1 Not Detected (Not Detect); Influenza B Not Detected (Not Detect); Mycoplasma pneumoniae Not Detected (Not Detect); Parainfluenza Virus 1 Not Detected (Not Detect); Parainfluenza Virus 2 Not Detected (Not Detect); Parainfluenza Virus 3 Not Detected (Not Detect); Parainfluenza Virus 4 Not Detected (Not Detect); Respiratory Syncytial Virus Not Detected (Not Detect); SARS-CoV-2 Not Detected (Not Detect)
[2021-03-20] MEDS ORDERED: Ropivacaine/PF 0.2% 20 ML VIAL ONE (17:45)
[2021-03-20] MEDS ORDERED: *HR* FentaNYL (PF) 100 MCG/2 ML VIAL ONE (17:45)
[2021-03-20] MEDS ORDERED: Measles/Mumps/Rubella Vacc 0.5 ML VIAL SQ PRN (20:15)
[2021-03-20] MEDS ORDERED: Benzocaine/Menthol 56 GM AEROSOL SPRAY TP PRN (20:15)
[2021-03-20] MEDS ORDERED: Acetaminophen 325 MG TABLET PO PRN (20:15)
[2021-03-20] MEDS ORDERED: Lanolin 7 G OINT...G. TP PRN (20:15)
[2021-03-20] MEDS: Ibuprofen 600 MG TABLET PO PRN (23:35)
[2021-03-21] MEDS: Ibuprofen 600 MG TABLET PO PRN (07:01)
[2021-03-21 07:44] VITALS: BP 122/81
[2021-03-21] MEDS ORDERED: Prenatal Vit/FA 1 EACH TABLET PO SCH (09:00)
== END 2021-03-21 20:30 | disposition home or self-care (01) | DRG 560 ==
LOC: 1NENULAB → 1NENUOBS 21:35
PROVIDERS: ADMIT Registered Nurse; ATTEND Registered Nurse

== ENCOUNTER 2021-03-30 09:51 | Observation (INO) ==
[2021-03-30] MEDS ORDERED: *HR* Labetalol 20 MG/4 ML SYRINGE IVP ONE (10:34)
[2021-03-30 11:20] LABS: Basophils # 0.1 K/mcL (0.0-0.2); Basophils % 0.9 %; Eosinophils # 0.4 K/mcL (0.0-0.6); Eosinophils % 6.7 %; Hemoglobin 10.7 g/dL (11.5-15.4); Immature Granulocytes % 0.4 % (0-4); Lymphocytes # 2.3 K/mcL (0.6-4.6); Lymphocytes % 40.5 %; Mean Corpuscular HGB Conc 32.4 g/dL (31.6-35.5); Mean Corpuscular Hemoglobin 29.4 pg (28.0-33.3); Mean Corpuscular Volume 90.7 fL (83.0-100.0); Mean Platelet Volume 10.3 fL (9.4-12.4); Monocytes # 0.3 K/mcL (0.0-1.3); Monocytes % 4.7 %; Neutrophils # 2.7 K/mcL (1.6-8.9); Platelet Count 305 K/mcL (140-400); Red Blood Count 3.64 M/mcL (3.82-4.97); Red Cell Distribution Width 13.2 % (11.5-14.5); Segmented Neutrophils % 46.8 %; White Blood Count 5.7 K/mcL (4.3-11.1)
[2021-03-30 11:34] LABS: Alanine Aminotransferase 10 Units/L (7-52); Albumin 3.9 g/dL (3.5-5.7); Albumin/Globulin Ratio 1.7 (1.1-2.2); Alkaline Phosphatase 119 Units/L (34-104); Aspartate Amino Transferase 11 Units/L (13-39); BUN/Creatinine Ratio 12 (6-26); Bilirubin,Direct 0.1 mg/dL (0.0-0.2); Bilirubin,Indirect 0.2 mg/dL (0.0-1.0); Bilirubin,Total 0.3 mg/dL (0.3-1.0); Blood Urea Nitrogen 9 mg/dL (6-20); Calcium 8.6 mg/dL (8.6-10.3); Carbon Dioxide 24 mEq/L (23-29); Chloride 110 mEq/L (98-107); Globulin 2.3 g/dL (2.4-3.5); Glucose 84 mg/dL (70-105); Magnesium 1.8 mg/dL (1.6-2.6); Osmolality,Calculated 290 (280-300); Sodium 141 mEq/L (136-145); Total Protein 6.2 g/dL (6.4-8.9); eGFR For African Americans > 60 (> 60); eGFR For Non-African Americans > 60 (> 60)
[2021-03-30 11:40] LABS: Bilirubin,Urine Negative (Negative); Blood,Urine Negative (Negative); Clarity,Urine Clear (Clear); Color,Urine Colorless (Yellow); Glucose,Urine (UA) Normal (Normal); Ketones,Urine Negative (Negative); Leukocyte Esterase,Urine Negative (Negative); Nitrite,Urine Negative (Negative); PH,Urine 7.5 pH Units (5.0-8.0); Protein,Urine Negative (Neg-Trace); Specific Gravity,Urine 1.005 (1.010-1.025); Urobilinogen,Urine Normal (Normal)
[2021-03-30 11:50] LABS: Protein/Creatinine Ratio,Urine 0.29 mg/mg (0.00-0.20)
[2021-03-30] MEDS ORDERED: Acetaminophen/Butalbital/CaffeineTABLET PO ONE (12:08)
[2021-03-30] MEDS ORDERED: Magnesium Sulf 20 gm/SW 500mL 20 GM/500 ML IV.SOLN IVC SCH ×4 (12:30→20:00)
[2021-03-30] MEDS ORDERED: Calcium Gluconate 1,000 MG/10 ML VIAL IVP PRN (13:42)
[2021-03-30] MEDS ORDERED: Acetaminophen/Butalbital/CaffeineTABLET PO PRN (21:44)
[2021-03-30] MEDS ORDERED: Ibuprofen 600 MG TABLET PO PRN (21:46)
[2021-03-30] MEDS ORDERED: Ringers Solution, Lactated 1,000 ML ONE (23:17)
[2021-03-30] MEDS ORDERED: Metoclopramide 10 MG/2 ML VIAL IVP ONE (23:40)
[2021-03-31 10:52] LABS: Creatinine,Urine 27 mg/dL
[2021-04-01 04:43] LABS: Basophils % 0.2 %; Eosinophils # 0.1 K/mcL (0.0-0.6); Eosinophils % 0.9 %; Hematocrit 35.8 % (35.3-44.9); Hemoglobin 11.9 g/dL (11.5-15.4); Immature Granulocytes % 0.3 % (0-4); Lymphocytes # 3.9 K/mcL (0.6-4.6); Lymphocytes % 32.2 %; Mean Corpuscular HGB Conc 33.2 g/dL (31.6-35.5); Mean Corpuscular Volume 90.2 fL (83.0-100.0); Monocytes # 0.4 K/mcL (0.0-1.3); Monocytes % 3.6 %; Platelet Count 341 K/mcL (140-400); Red Blood Count 3.97 M/mcL (3.82-4.97); Red Cell Distribution Width 13.2 % (11.5-14.5); Segmented Neutrophils % 62.8 %
[2021-04-01 04:46] LABS: Neutrophils # 7.5 K/mcL (1.6-8.9)
[2021-04-01 04:52] LABS: Protein/Creatinine Ratio,Urine 0.08 mg/mg (0.00-0.20)
[2021-04-01 05:06] LABS: Alanine Aminotransferase 8 Units/L (7-52); Aspartate Amino Transferase 8 Units/L (13-39); BUN/Creatinine Ratio 12 (6-26); Blood Urea Nitrogen 12 mg/dL (6-20); Lactate Dehydrogenase 146 Units/L (140-271); Uric Acid 7.9 mg/dL (2.3-7.6); eGFR For African Americans > 60 (> 60); eGFR For Non-African Americans > 60 (> 60)
[2021-04-01 07:54] VITALS: BP 135/86
[2021-04-01] MEDS ORDERED: NIFEdipine XL (24 HR) 30 MG TAB.ER.24 PO SCH (09:00)
== END 2021-04-01 10:00 | disposition home or self-care (01) ==
LOC: 1NENUOBS 09:51 → EMEROOARM 09:51 → 1NENUOBS 13:22
PROVIDERS: ADMIT Obstetrics & Gynecology; ATTEND Obstetrics & Gynecology